=== PATIENT | male | born 1975 ===

== ENCOUNTER 2023-04-21 09:45 | Outpatient (CLI) | payer OTHER, SELFPAY | END 2023-04-21 09:46 | disposition home or self-care (01) | LOC: NFLDREF 04-25 11:26 | PROVIDERS: PCP Emergency Medicine; Referring Provider Emergency Medicine; Visit Provider Emergency Medicine | DX: R35.1 Nocturia (principal); Z13.1 Encounter for screening for diabetes mellitus; Z13.6 Encounter for screening for cardiovascular disorders; Z12.5 Encounter for screening for malignant neoplasm of prostate | CPT/HCPCS: 80061; 82947; 84153 ==

== ENCOUNTER 2023-05-18 08:19 | Outpatient (CLI) | payer OTHER, SELFPAY ==
--- NOTE | 2023-05-18 10:23 | W.ANESCHARGE ---
Anesthesia Charges Start Date/Time Anesthesia Start Date: 05/18/23 Anesthesia Start Time: 09:36 Stop Date/Time Anesthesia Stop Date: 05/18/23 Anesthesia Stop Time: 10:19
== END 2023-05-18 08:20 | disposition home or self-care (01) ==
LOC: OP CLINIC 08:21
PROVIDERS: PCP Emergency Medicine; Visit Provider Internal Medicine
DX: Z12.11 Encounter for screening for malignant neoplasm of colon (principal); K63.5 Polyp of colon
CPT/HCPCS: 00811; 45380; 88305; J2704

== ENCOUNTER 2023-06-29 14:44 | Outpatient (CLI) | payer OTHER, SELFPAY | END 2023-06-29 14:45 | disposition home or self-care (01) | LOC: LKVREF 14:45 | PROVIDERS: PCP Emergency Medicine; Visit Provider Emergency Medicine | DX: Z01.818 Encounter for other preprocedural examination (principal); Z13.228 Encounter for screening for other metabolic disorders; Z13.0 Encounter for screening for diseases of the blood and blood-forming organs and certain disorders involving the immune mechanism | CPT/HCPCS: 80048 ==

== ENCOUNTER 2024-06-11 10:26 | Outpatient (CLI) | payer OTHER, SELFPAY | END 2024-06-11 10:27 | disposition home or self-care (01) | PROVIDERS: PCP Emergency Medicine; Visit Provider Emergency Medicine | DX: Z00.00 Encounter for general adult medical examination without abnormal findings (principal); Z13.6 Encounter for screening for cardiovascular disorders; Z12.5 Encounter for screening for malignant neoplasm of prostate; Z13.1 Encounter for screening for diabetes mellitus | CPT/HCPCS: 80061; 82947; G0103 ==

== ENCOUNTER 2025-05-27 15:24 | Outpatient (CLI) | payer OTHER, SELFPAY ==
--- NOTE | 2025-06-17 12:15 | W.PM.SLEEP ---
Sleep Study Details Details Interpreting Provider: Sebastian Date of Sleep Study: 05/27/25 Sleep Study Details: STUDY TYPE:? Home unattended ? BMI:? 29.21 ORDERING PROVIDER:? Sebastian INDICATION:? Concern for sleep apnea ? SLEEP SUMMARY:? 486 minutes monitored RESPIRATORY SUMMARY:? AHI 6.8 rule 1A, 3.0 per CMS guideline Low oxygen 86 2.1% of study oxygen less than 90% Snoring 80.7% PERIODIC LIMB MOVEMENTS OF SLEEP:? Not recorded CARDIAC:? Range 43-87, mean 54.5 beats per minute IMPRESSION:? Mild obstructive sleep apnea RECOMMENDATION: Treatment options include dental appliance or CPAP.
== END 2025-05-27 15:25 | disposition home or self-care (01) ==
LOC: SLEEP 15:25
PROVIDERS: Visit Provider Otolaryngology
DX: G47.33 Obstructive sleep apnea (adult) (pediatric) (principal)
CPT/HCPCS: 95806

== ENCOUNTER 2025-06-13 09:50 | Outpatient (CLI) | payer OTHER, SELFPAY | END 2025-06-13 09:51 | disposition home or self-care (01) | LOC: NFLDREF 06-18 18:23 | PROVIDERS: Visit Provider Family Medicine | DX: Z00.00 Encounter for general adult medical examination without abnormal findings (principal); Z12.5 Encounter for screening for malignant neoplasm of prostate; Z13.6 Encounter for screening for cardiovascular disorders | CPT/HCPCS: 80053; 80061; G0103 ==